=== PATIENT | female | born 1985 | race Asian ===

== ENCOUNTER 2017-03-18 05:30 | Inpatient (IN) | payer OTHER ==
[2017-03-18] MEDS ORDERED: ELECTROLYTE-148 SOLN 500 ML IV ONE (06:30)
[2017-03-18] MEDS ORDERED: CITRIC ACID/SODIUM CITRATE 30 ML UNIT-DOSE CUP PO ONE (06:30)
[2017-03-18 06:41] VITALS: BMI 29.8
[2017-03-18] MEDS ORDERED: ELECTROLYTE-148 SOLN 1,000 ML IV SCH (07:00)
--- NOTE | 2017-03-18 07:28 | HP ---
Past Medical History - Admission Chief Complaint: Here for scheduled delivery due to placenta previa. History of Present Illness: 31 y/o with SIUP at 37.3 weeks gestation (EDC 04/05/17 by ultrasound) here for scheduled delivery due to placenta previa. Patient has a also complicated by A1GDM. Pt has been followed by MFM. Blood Glucose has been controlled with diet. GBS positive. HIV negative. RPR negative. RH positive. Rubella immune. History Source: Patient, Medical Record Limitations to Obtaining History: No Limitations - Past Medical History PAIN MANAGEMENT SPECIALIST: No: Migraine, Seizure Cardiovascular: No: HTN, SC Pulmonary: No: Asthma, COPD Gastrointestinal: No: GERD Hepatobiliary: No: Hepatitis B, Hepatitis C Reproductive: No: Endometriosis, Fibroids, PID, Polycystic Ovary Syndrome ...: 3 ...Para: 1 ...Term: 1 ...Induced : 1 ...LMP: 07/07/16 ... Weeks Gestation by Dates: 36.2 ...EDC by Dates: 04/13/17 ...EDC by Sono: 04/05/17 Additional OB History: Pt 37.2 weeks gestation by ultrasound Heme/Onc: No: Anemia, Sickle Cell Disease Infectious Disease: No: MRSA, STD's Psych: No: Anxiety, Bipolar, Depression Endocrine: Yes: Diabetes Mellitus (GDMA1). No: Hyperthyroidism - Past Surgical History Past Surgical History: Yes: Cholecystectomy Hx Myomectomy: No Hx Transabdominal Cerclage: No - Smoking History Smoking history: Never smoked - Alcohol/Substance Use Hx Alcohol Use: No History of Substance Use: reports: None - Social History Usual Living Arrangement: Yes: With Spouse ADL: Independent History of Recent Travel: No Home Medications - Allergies Allergies/Adverse Reactions: Allergies Allergy/AdvReac Type Severity Reaction Status Date / Time APPLE Allergy Mild Itching Uncoded 03/18/17 06:50 CHERRIES Allergy Mild Itching Uncoded 03/18/17 06:50 - Home Medications Home Medications: Ambulatory Orders One Tablet 1 tab PO DAILY 03/18/17 Review of Systems - Review of Systems Constitutional: reports: No Symptoms Eyes: reports: No Symptoms HENT: reports: No Symptoms Neck: reports: No Symptoms Cardiovascular: reports: No Symptoms Respiratory: reports: No Symptoms Gastrointestinal: reports: No Symptoms Genitourinary: reports: No Symptoms Breasts: reports: No Symptoms Reported Musculoskeletal: reports: No Symptoms Integumentary: reports: No Symptoms Neurological: reports: No Symptoms Endocrine: reports: No Symptoms Hematology/Lymphatic: reports: No Symptoms Psychiatric: reports: No Symptoms Physical Exam - Maternity Vital Signs: Vital Signs Temperature 97.7 F 03/18/17 06:42 Pulse Rate 86 03/18/17 06:42 Respiratory Rate 20 03/18/17 06:42 Blood Pressure 111/58 03/18/17 06:42 O2 Sat by Pulse Oximetry (%) Constitutional: Yes: Well Nourished, No Distress, Calm Eyes: Yes: Conjunctiva Clear, EOM Intact HENT: Yes: Atraumatic, Normocephalic Neck: Yes: Supple, Trachea Midline Cardiovascular: Yes: Regular Rate and Rhythm Lungs: Clear to auscultation - Abdominal Exam/OB Number of Fetuses: Single Presentation: Vertex Contractions: No Monitor Mode: External Category: I Accelerations: Uniform Decelerations: None - Vaginal Exam/OB Vaginal Bleediing: No Amniotic Membrane Status: Intact Presentation: Vertex/Position - Physical Exam Psychiatric: Yes: Alert, Oriented Hemorrhage Risk Assessment - Risk Factors Medium Risk Factors: Yes: None High Risk Factors: Yes: Placenta previa, low lying Risk Score: 3 Risk Level: High Risk Problem List - Problems (1) Placenta previa antepartum in third trimester Code(s): O44.03 - COMPLETE PLACENTA PREVIA NOS OR WITHOUT HEMOR, THIRD TRI (2) Placenta previa before labor and delivery without hemorrhage Code(s): O44.00 - COMPLETE PLACENTA PREVIA NOS OR WITHOUT HEMOR, UNSP TRI (3) Gestational diabetes mellitus in childbirth, diet controlled Code(s): O24.420 - GESTATIONAL DIABETES MELLITUS IN CHILDBIRTH, DIET CONTROLLED Assessment/Plan 31 y/o with SIUP at 37.2 weeks here for scheduled primary delivery - AFVSS - FHTs cat 1 - placenta previa - for scheduled primary - type and screen ready- will crossmatch 2 units PRBC - NPO, carreno placed, abdominal prep complete - anesthesia aware, nursing aware
[2017-03-18] MEDS ORDERED: oxyCODONE HCL 5 MG TABLET PO PRN (08:34)
[2017-03-18] MEDS ORDERED: METHYLERGONOVINE MALEATE 0.2 MG/1 ML AMP IM PRN (08:34)
--- NOTE | 2017-03-18 08:36 | OP ---
Operative Note - Note: Operative Date: 03/18/17 Pre-Operative Diagnosis: SIUP at 37.2 weeks, posterior placenta previa Operation: primary low transverse delivery Post-Operative Diagnosis: Same as Pre-op Surgeon: Anabel Kenney Axle And Frame Mechanic: Peace Gunn Anesthesiologist/COMPUTER CLERK: Kit Urbano Anesthesia: Spinal Specimens Removed: placenta Estimated Blood Loss (mls): 600 Operative Report Dictated: Yes
[2017-03-18] MEDS: OXYTOCIN 20 UNITS in 0.9% NS 1,000 ML IV SCH (08:45)
[2017-03-18] MEDS ORDERED: ONDANSETRON 4 MG/2 ML VIAL IVPB PRN (08:55)
[2017-03-18] MEDS ORDERED: TUBERCULIN PPD 5 TU/0.1ML SYRINGE (IN PATIENT USE ONLY) ID ONE (12:00)
[2017-03-18] MEDS: IBUPROFEN 800 MG/8 ML IJ IVPB PRN (16:13)
[2017-03-19] MEDS: IBUPROFEN 800 MG/8 ML IJ IVPB PRN (04:33)
[2017-03-19] MEDS ORDERED: BISACODYL 10 MG SUPP.RECT RC PRN (08:34)
[2017-03-19 08:52] LABS: BASOPHIL 0.1 % (0-2.0); MCH 31.7 pg (25.7-33.7); MEAN CELL VOLUME 93.2 fl (80-96); MEAN PLT VOLUME 9.9 fl (7.5-11.1); NEUTROPHILS 88.4 % (42.8-82.8); PLATELET COUNT 163 K/MM3 (134-434); WHITE BLOOD COUNT 10.8 K/mm3 (4.0-10.0)
--- NOTE | 2017-03-19 08:55 | PN ---
Progress Note (short form) - Note Progress Note: Anesthesia/Pain Pt seen and examined S:alert and awake comfortable O: Vital Signs Temperature 98.9 F 03/19/17 06:00 Pulse Rate 87 03/19/17 06:00 Respiratory Rate 20 03/19/17 06:00 Blood Pressure 114/59 03/19/17 06:00 O2 Sat by Pulse Oximetry (%) 99 03/18/17 09:45 A/P:Current Active Problems Gestational diabetes mellitus in childbirth, diet controlled (Acute) Placenta previa antepartum in third trimester (Acute) Placenta previa before labor and delivery without hemorrhage (Acute) s/p c section Doing well post op Continue current care Jesu Olivera MD
--- NOTE | 2017-03-19 09:36 | PN ---
Post Progress Note Type of Delivery: Primary C/S Vital Signs: Vital Signs Temperature 98.9 F 03/19/17 06:00 Pulse Rate 87 03/19/17 06:00 Respiratory Rate 20 03/19/17 06:00 Blood Pressure 114/59 03/19/17 06:00 O2 Sat by Pulse Oximetry (%) 99 03/18/17 09:45 Breast Exam: Yes: Soft Uterus: Yes: Fundus Firm, Fundus below umbilicus Incision: Yes: Dressing dry and intact Abdomen/GI: Yes: Abdomen soft, Tender, Passing flatus, Tolerating PO. No: Abdominal Distention Lochia: Yes: Rubra Lochia, amount: Small Extremities: Yes: Calves non-tender. No: Edema Perineum: Yes: Intact Activity: Ambulating Problem List - Problems (1) Placenta previa antepartum in third trimester Code(s): O44.03 - COMPLETE PLACENTA PREVIA NOS OR WITHOUT HEMOR, THIRD TRI (2) Placenta previa before labor and delivery without hemorrhage Code(s): O44.00 - COMPLETE PLACENTA PREVIA NOS OR WITHOUT HEMOR, UNSP TRI (3) Gestational diabetes mellitus in childbirth, diet controlled Code(s): O24.420 - GESTATIONAL DIABETES MELLITUS IN CHILDBIRTH, DIET CONTROLLED (4) delivery delivered Code(s): O82 - ENCOUNTER FOR DELIVERY WITHOUT INDICATION Assessment/Plan 31 y/o POD#1 s/p primary c section for placenta previa - AFVSS - Hgb/Hct pending - pain controlled when takes medication - encourage ambulation - routine post op care
[2017-03-19] MEDS: PRENATAL VITAMINS W/ FOLIC ACID TABLET (FP) PO SCH (10:25)
[2017-03-19] MEDS ORDERED: DIPHTH,PERTUSS(ACELL),TET 0.5 ML DISP.SYRIN IM ONE ×2 (10:30→14:00)
[2017-03-19] MEDS: SIMETHICONE 80 MG TAB.CHEW (FP) PO PRN ×3 (11:27→22:36)
[2017-03-19] MEDS: oxyCODONE HCL 5 MG TABLET PO PRN ×3 (11:27→22:36)
[2017-03-19] MEDS: ACETAMINOPHEN 325 MG TABLET (FP) PO PRN (11:28)
[2017-03-19] MEDS: IBUPROFEN 600 MG TABLET (FP) PO PRN ×2 (17:28→22:35)
[2017-03-20] MEDS: ACETAMINOPHEN 325 MG TABLET (FP) PO PRN ×3 (06:21→22:52)
[2017-03-20] MEDS: oxyCODONE HCL 5 MG TABLET PO PRN ×3 (06:21→16:47)
[2017-03-20] MEDS: PRENATAL VITAMINS W/ FOLIC ACID TABLET (FP) PO SCH (10:20)
[2017-03-20] MEDS: SIMETHICONE 80 MG TAB.CHEW (FP) PO PRN ×3 (12:26→22:52)
[2017-03-20] MEDS: IBUPROFEN 600 MG TABLET (FP) PO PRN ×2 (16:48→22:52)
[2017-03-21] MEDS: IBUPROFEN 600 MG TABLET (FP) PO PRN (05:54)
[2017-03-21] MEDS: SIMETHICONE 80 MG TAB.CHEW (FP) PO PRN (05:54)
[2017-03-21] MEDS: ACETAMINOPHEN 325 MG TABLET (FP) PO PRN (05:55)
[2017-03-21 08:56] LABS: BASOPHIL 0.2 % (0-2.0); EOSINOPHIL 0.6 % (0-4.5); MCH 31.3 pg (25.7-33.7); MCHC 33.3 g/dl (32.0-36.0); MEAN CELL VOLUME 93.9 fl (80-96); MEAN PLT VOLUME 10.1 fl (7.5-11.1); NEUTROPHILS 83.8 % (42.8-82.8); PLATELET COUNT 182 K/MM3 (134-434); RDW 14.1 % (11.6-15.6); WHITE BLOOD COUNT 6.3 K/mm3 (4.0-10.0)
[2017-03-21 09:29] VITALS: BP 119/72; PULSE 81; TEMP 98
--- NOTE | 2017-03-21 09:44 | PN ---
Post Note - Post Date of Delivery: 03/18/17 Post Day: 3 Vital Signs: Vital Signs - 24 hr 03/20/17 03/20/17 03/21/17 10:00 20:42 09:16 Temperature 98.5 F 98.5 F 98.0 F Pulse Rate 97 H 85 81 Respiratory 20 20 20 Rate Blood Pressure 98/49 125/65 119/72 Labs: Laboratory Results - last 24 hr 03/21/17 07:35 WBC 6.3 D RBC 3.32 L Hgb 10.4 L Hct 31.2 L MCV 93.9 MCH 31.3 MCHC 33.3 RDW 14.1 Plt Count 182 MPV 10.1 Neutrophils % 83.8 H Lymphocytes % 9.1 D Monocytes % 6.3 Eosinophils % 0.6 D Basophils % 0.2 - Subjective Subjective: No Complaints, Other (Pt was seen on 03/20) - Objective Afebrile: Yes Breast: Not engorged Abdomen: Soft (incision intact), Other (dressing removed) Uterus: Fundus firm, Non-tender Vagina: Scant lochia Extremities: Non-tender - Assessment/Plan (1) delivery delivered Assessment: Other (POD 2 pt was see at bedside) Plan: Routine Care
--- NOTE | 2017-03-21 09:45 | DS ---
Physical Exam-TALENT ASSOCIATE Vital Signs: Vital Signs Temperature 98.0 F 03/21/17 09:16 Pulse Rate 81 03/21/17 09:16 Respiratory Rate 20 03/21/17 09:16 Blood Pressure 119/72 03/21/17 09:16 O2 Sat by Pulse Oximetry (%) 99 03/18/17 09:45 Constitutional: Yes: Well Nourished, No Distress Gastrointestinal: Yes: WNL, Normal Bowel Sounds ....Post : Yes: Uterus firm, Uterus non-tender Wound/Incision: Yes: Steri Strips, Open to air Neurological: Yes: WNL, Alert, Oriented Labs: CBC, BMP 03/21/17 07:35 Delivery - Delivery Type of Anesthesia: Spinal Episiotomy/Laceration: None EBL (cc): 500 Delivery, Single - Stages of Labor Date of Delivery: 03/18/17 Time of Delivery: 08:06 Time Placenta Delivered: 08:07 Placenta: Yes: Manual Removal - Condition of Infant Embossing Tool Setter/Study Lead Present: Yes Name: Drea Guevara Gender: Female Weight: 5 lb 13 oz Total Hours ROM (Hrs/Mins): 0/01 - 1 Minute Total Score: 9 5 Minutes Total Score: 9 - Feeding Plan Initial Plan: Elected not to breastfeed exclusively throughout hospitalization Discharge Summary Reason For Visit: C/SECTION Current Active Problems delivery delivered (Acute) Gestational diabetes mellitus in childbirth, diet controlled (Acute) Placenta previa antepartum in third trimester (Acute) Placenta previa before labor and delivery without hemorrhage (Acute) Procedures: Principal: Repeat CS Condition: Good - Instructions Diet, Activity, Other Instructions: Physical activity Resume your normal everyday activity as tolerated but no heavy lifting or strenuous exercise until seen by your surgeon. You may walk unlimited amounts and climb stairs. You may resume driving the car when you feel safe and comfortable behind the wheel. No sexual activity as instructed for 6 weeks. Wound care If they are tapes on the skin under the out of bandage leave them in place. They will peel off in the next 7 to 10 days. Do Not Peel them off. You may shower the day after surgery. If there are tapes present on the skin, you may shower over them. Diet There are no dietary restrictions. Eat healthy, high-fiber foods. Drink 6 to 8 glasses of liquid each day. This will assist in keeping your bowels regular. Pain management You may take Tylenol or Ibuprofen (for example, Motrin, Advil etc.) for mild pain. If any prescription medication is ordered should be taken as prescribed for moderate to severe pain. Call MD for any of the following: Severe pain not relieved by medication Fever of 101 or higher Excessive bleeding or drainage on dressing Inability to urinate Referrals: Anabel Kenney DO [Staff Physician] - 1 Week Disposition: HOME - Home Medications Comprehensive Discharge Medication List: Ambulatory Orders One Tablet 1 tab PO DAILY 03/18/17 Ibuprofen [Motrin -] 600 mg PO QID PRN #28 tablet 03/19/17 Oxycodone HCl/Acetaminophen [Percocet 5-325 mg Tablet -] 1 tab PO Q4H #30 tablet MDD 6 03/19/17
[2017-03-21] MEDS: OXYTOCIN 20 UNITS in 0.9% NS 1,000 ML IV SCH (10:14)
[2017-03-21] MEDS: PRENATAL VITAMINS W/ FOLIC ACID TABLET (FP) PO SCH (10:14)
--- NOTE | 2017-03-22 12:27 | OP ---
DATE OF OPERATION: 03/18/2017 PREOPERATIVE DIAGNOSIS: Single intrauterine at 37.2 weeks with a posterior placenta previa. POSTOPERATIVE DIAGNOSIS: Single intrauterine at 37.2 weeks with a posterior placenta previa. PROCEDURE: Repeat low transverse section. SURGEON: Anabel Kenney DO DIRECTOR PHARMACY SERVICES: Peace Gunn MD ESTIMATED BLOOD LOSS: 600 mL. ANESTHESIA: Spinal by . COMPLICATIONS: None. SPECIMENS: Included placenta. Sponge, needle, and instrument count correct. DISPOSITION: Stable to PACU. BRIEF HISTORY AND PROCEDURE: The patient is a 31-year-old [id number] female with a complicated by a posterior placenta previa. The patient was counseled on the recommendations and was scheduled to undergo a primary delivery in her 37th week. The patient was admitted to [facility] on March 18, 2017. Consents for the procedure were signed at that time. The patient was then taken back to the operating room where she was given spinal anesthesia by without difficulty. She was then placed in a dorsal supine position. A Mcginnis catheter was placed under sterile conditions. She was prepped and draped in the usual sterile fashion, and a hard time-out was performed. A Pfannenstiel skin incision was created in the skin with a scalpel and carried to the underlying layer of rectus fascia with the Bovie. The fascia was incised on either side of the midline with the Bovie, and the fascial inches was carried in a superolateral direction sharply with the Bovie. The fascia was tented upward and dissected off the underlying layer of rectus muscles with the Bovie then the rectus muscles were retracted laterally and the peritoneum was entered bluntly. Bladder blade was inserted. A transverse incision was then created in the uterus in the lower uterine segment, and this incision was carried in a superolateral direction bluntly. The was then delivered from the left occiput transverse position without difficulty. Bilateral shoulders and the remainder of the delivered with ease. The cord was allowed to drain for delayed cord emptying, and then the cord was then clamped and cut, and the infant was taken over to the warmer to be assessed by Neonatology where the baby received Apgars scores of 9/9. The placenta was then delivered without difficulty. The uterus was exteriorized from the abdomen, and the hysterotomy was reapproximated in a double-layered closure in a running, locked fashion first with 1 Vicryl suture then the imbricating layer with 0 Biosyn. Excellent hemostasis was achieved. The posterior cul-de-sac was suctioned. The uterus was then examined. Bilateral tubes and ovaries were noted to be normal. The uterus was placed back into the abdomen. Bilateral gutters were inspected and cleared of all debris. The hysterotomy was, again, noted to be hemostatic. At this point, the peritoneal layer was reapproximated using chromic suture in a running fashion. The musculature was reapproximated with 2 interrupted Vicryl sutures, and the fascia was reapproximated using 1 Vicryl in a running fashion. The subcutaneous tissue was irrigated and reapproximated using Vicryl suture in a running fashion, and the skin was reapproximated using Vicryl in a subcuticular fashion. Steri-Strips were applied. The patient tolerated the procedure well. Sponge, needle, and instrument count was reported to be correct. The patient was recovering in stable condition in the labor room recovery after the procedure. ANABEL KENNEY DO /[id number]
--- NOTE | 2017-03-24 15:08 | PATH ---
Surgical Pathology Report Patient Name: AISLINN OCONNOR [facility]. Rec. #: [id number] /Age/Gender: 1985 (Age: 31) / F Account: [id number] Location: [facility] OBS/MANAGER ACCESS Taken: 03/18/2017 Received: 03/19/2017 Reported: 03/24/2017 Physicians: Anabel Kenney M.D. Specimen(s) Received PLACENTA Clinical History , 37.3; placenta previa Primary c/section Final Diagnosis PLACENTA, DELIVERY: FOCALLY DISRUPTED, SMALL (<400 GM) THIRD TRIMESTER PLACENTA (PLACENTA PREVIA BY HISTORY) WITH MODERATE PREVILLOUS, PERIVILLOUS, AND PRECHORIONIC FIBRIN DEPOSITION, CALCIFICATIONS, THREE VESSEL UMBILICAL CORD, AND PLACENTAL MEMBRANES WITH AMNION HYPERPLASIA. Electronically Signed Ted Reed M.D. Gross Description The specimen is received fresh, labeled "placenta" and is a 386 gram, 16.0 x 13.5 x 2.8 cm placenta with attached membranes and umbilical cord. The attached membranes are garnett, translucent with focal opacities and insert marginally. The umbilical cord measures 33 cm in length and averages 0.9 cm in diameter. The cord inserts eccentrically, 4 cm to the nearest margin. No true knots or strictures are identified. Cut surface of the umbilical cord reveals 3 vessels. The surface is santiago-blue with fibrin deposition and appropriate caliber vessels. The maternal surface is red-brown with focal defects. Sectioning reveals red-brown, spongy parenchyma. No focal lesions are identified. Aprn sections are submitted in three cassettes as follows: 1- membrane rolls and umbilical cord; 2-3- full thickness sections of placenta. 03/23/[address] [facility]03/23/2017
== END 2017-03-21 11:20 | disposition home or self-care (01) | DRG 540 ==
LOC: JLDR 05:30 → J3W 10:21
PROVIDERS: ADMIT Obstetrics & Gynecology; ATTEND Obstetrics & Gynecology
PROC: 10D00Z1 Extraction of Products of Conception, Low, Open Approach (ICD-10-PCS; principal; 2017-03-18)
DX: O44.03 Complete placenta previa NOS or without hemorrhage, third trimester (principal); Z3A.37 37 weeks gestation of pregnancy; O24.410 Gestational diabetes mellitus in pregnancy, diet controlled; Z22.330 Carrier of Group B streptococcus; Z37.0 Single live birth
CPT/HCPCS: 36415; 85025; 86850; 86900; 86901; 88307-TC; 90715